=== PATIENT | female | born 1995 | race Two or more races ===

== ENCOUNTER 2021-10-07 17:20 | Emergency (ER) | payer OTHER ==
[~2021-10-07] VITALS: Ht 172.7 cm; Wt 59.0 kg
[2021-10-07] MEDS ORDERED: LEXAPRO5 MG PO (18:34)
== END 2021-10-08 00:08 | disposition home or self-care (01) ==
LOC: ER 17:20
DX: S92.511A Displaced fracture of proximal phalanx of right lesser toe(s), initial encounter for closed fracture (principal); W22.09XA Striking against other stationary object, initial encounter; Y93.9 Activity, unspecified; Y92.9 Unspecified place or not applicable; Y99.9 Unspecified external cause status